=== PATIENT | male | born 1960 | race Caucasian/White ===

== ENCOUNTER 2016-07-07 11:59 | Day surgery (SDC) | payer OTHER ==
[2016-06-29 14:25] LABS: BASOPHILS 0.5 %; BASOPHILS ABSOLUTE 0.02 10/3/uL (0.0-0.16); EOSINOPHILS 3.1 %; EOSINOPHILS ABSOLUTE 0.13 10/3/uL (0.0-0.53); HEMATOCRIT 41.1 % (40.0-51.0); HEMOGLOBIN 13.8 g/dL (13.6-17.8); IMMATURE GRANULOCYTES 0.2 %; IMMATURE GRANULOCYTES ABSOLUTE 0.01 10/3/uL (0.0-0.11); LYMPHOCYTES 41.6 %; LYMPHOCYTES ABSOLUTE 1.72 10/3/uL (0.67-4.30); MEAN CORPUS HGB CONC 33.6 g/dL (32.0-36.0); MEAN CORPUSCULAR VOLUME 89.3 fL (80-100); MEAN PLATELET VOLUME 10.6 fL (9.2-13.0); MONOCYTES 8.7 %; MONOCYTES ABSOLUTE 0.36 10/3/uL (0.21-1.20); NEUTROPHILS 45.9 %; NEUTROPHILS ABSOLUTE 1.89 10/3/uL (2.02-8.40); PLATELET COUNT 162 10/3/uL (150-400); RBC DISTRIBUTION WIDTH 13.2 % (12.0-16.0); WHITE BLOOD CELLS 4.1 10/3/uL (4.5-10.5)
[2016-06-29 14:26] LABS: MANUAL DIFF NO %
[2016-06-29 14:44] LABS: A/G RATIO 1.3 (0.7-1.9); ALBUMIN 3.9 G/DL (3.5-5.0); ALKALINE PHOSPHATASE 84 U/L (45-117); BUN (BLOOD UREA NITROGEN) 17 MG/DL (6-23); CALCIUM, SERUM 8.9 MG/DL (8.5-10.4); CHLORIDE, SERUM 106 MMOL/L (96-112); CO2 (CARBON DIOXIDE) 29 MMOL/L (24-34); GFR AFRICAN AMERICAN 70 ML/MIN (>=60); GFR NON AFRICAN AMERICAN 61 ML/MIN (>=60); GLOBULIN 3.1 G/DL (2.5-4.1); GLUCOSE, SERUM 71 MG/DL (60-99); POTASSIUM, SERUM 4.1 MMOL/L (3.5-5.3); SGOT(AST) 14 U/L (5-40); SGPT(ALT) 23 U/L (5-65); SODIUM, SERUM 143 MMOL/L (135-148); TOTAL BILIRUBIN 0.5 MG/DL (0-1.2)
--- NOTE | ~2016-07-07 | OP ---
Record Of Operation [facility] [address] [place]. [address] NAME: MARIA ESTHER QUIGLEY : 56 STATUS : [facility]#: [id number] AGE: 55 ADM/REG DATE : 07/07/16 MR#: [id number] REPORT SERV DATE: 07/07/16 DICTATED BY: PROSPER ZALDIVAR DATE: 07/07/16 REPORT STATUS : Draft TRANSCRIBED BY: MODL DATE: 07/07/16 DATE OF PROCEDURE: 07/07/2016 PREOPERATIVE DIAGNOSIS: Elevated PSA. POSTOPERATIVE DIAGNOSIS: Elevated PSA. OPERATIVE PROCEDURE: Transrectal ultrasound-guided needle biopsy of the prostate. ANESTHESIA: IV sedation (MAC). ESTIMATED BLOOD LOSS: Less than 3 mL. SPECIMENS: Prostate x18 (3 right base, 3 right mid gland, 3 right apex, 3 left base, 3 left mid gland, 3 left apex). COMPLICATIONS: None. IMMEDIATE POSTOP: Satisfactory. DESCRIPTION OF PROCEDURE: The patient was brought into the cysto suite, placed in lateral decubitus position, given intravenous sedation by the Anesthesia Department (monitored anesthesia care.) Transrectal ultrasound probe containing needle biopsy guide was then passed by the account technician. Gland was then imaged and measured in both transverse and longitudinal planes. No clear-cut suspicious areas were noted. Prostate dimensions were 4.72 cm length, 4.78 cm height, 3.41 cm width. Volume was 40.27 mL. At this point, multiple transrectal biopsies under ultrasound guidance were obtained using disposable biopsy needle. These specimens were taken in the distribution mentioned above. At the close of procedure, an absorbable Gelfoam packing was passed per rectum. The patient was then awakened and sent to recovery in satisfactory condition. /PRIYANKA Prosper Zaldivar M.D. / [id number] CC: Don Keith M.D.
[~2016-07-07 11:59] MED LIST: CIALIS PO; PANTOPRAZOLE PO
== END 2016-07-07 17:59 | disposition home or self-care (01) ==
LOC: SDC 11:59
PROVIDERS: Urology
PROC: 0VB07ZX Excision of Prostate, Via Natural or Artificial Opening, Diagnostic (ICD-10-PCS; 2016-07-07)
PROC: BV49ZZZ Ultrasonography of Prostate and Seminal Vesicles (ICD-10-PCS; principal; 2016-07-07 13:45)
DX: C61 Malignant neoplasm of prostate (principal); G47.33 Obstructive sleep apnea (adult) (pediatric); K21.9 Gastro-esophageal reflux disease without esophagitis; Z79.899 Other long term (current) drug therapy; Z90.49 Acquired absence of other specified parts of digestive tract; Z98.890 Other specified postprocedural states
CPT/HCPCS: 71020; 76872; 76942; 80053; 85025; 88305; 88344; 93005; J2250; J2405; J3010